=== PATIENT | male | born 1980 | race Caucasian/White ===

== ENCOUNTER 2021-10-27 13:17 | Emergency (ER) | payer OTHER ==
[~2021-10-27] VITALS: Ht 177.8 cm; Wt 105.2 kg
--- NOTE | 2021-10-27 20:26 | EKG ---
[facility] [address] [facility] [place], [place] [address] Signed Normal sinus rhythm Normal ECG No previous ECGs available Confirmed by GODWIN LONG MD ([id number]) on 10/27/2021 8:25:45 PM Electronically Signed By: GODWIN LONG MD 10/27/212025 PATIENT NAME: TINY LAUGHLINNESTOR DEL TORO Electrocardiogram DATE OF : 78 PHYSICIAN: GODWIN LONG MD REPORT #: [id number] REPORT IS CONFIDENTIAL AND NOT TO BE RELEASED WITHOUT AUTHORIZATION
== END 2021-10-27 15:02 | disposition home or self-care (01) ==
LOC: ED 13:17
DX: R07.89 Other chest pain (principal); K21.9 Gastro-esophageal reflux disease without esophagitis
CPT/HCPCS: 71045; 84484; 85025; 93005; 93010; 99285-25